=== PATIENT | female | born 1955 | race Caucasian/White ===

== ENCOUNTER 2022-04-15 05:20 | Observation (INO) ==
[2022-04-15 05:38] VITALS: TEMP 98.4
[2022-04-15 06:12] LABS: Basophils % 0.5 %; Eosinophils # 0.3 K/mcL (0.0-0.6); Eosinophils % 4.5 %; Hematocrit 45.7 % (35.3-44.9); Hemoglobin 15.2 g/dL (11.5-15.4); Immature Granulocytes % 0.4 % (0-4); Lymphocytes # 1.9 K/mcL (0.6-4.6); Lymphocytes % 25.7 %; Mean Corpuscular HGB Conc 33.3 g/dL (31.6-35.5); Mean Corpuscular Volume 81.2 fL (83.0-100.0); Mean Platelet Volume 10.9 fL (9.4-12.4); Monocytes # 0.7 K/mcL (0.0-1.3); Monocytes % 9.8 %; Neutrophils # 4.5 K/mcL (1.6-8.9); Platelet Count 164 K/mcL (140-400); Red Blood Count 5.63 M/mcL (3.82-4.97); Red Cell Distribution Width 12.4 % (11.5-14.5); Segmented Neutrophils % 59.1 %; White Blood Count 7.5 K/mcL (4.3-11.1)
[2022-04-15 06:18] LABS: Prothrombin Time 11.3 Seconds (9.4-12.1)
[2022-04-15] MEDS ORDERED: Nitroglycerin 0.4 MG TAB.SUBL SL PRN (06:20)
[2022-04-15] MEDS ORDERED: Aspirin 81 MG TAB.CHEW PO ONE (06:20)
[2022-04-15 06:21] LABS: Activated Partial Thrombo Time 36.5 Seconds (26.0-36.0)
[2022-04-15 06:34] LABS: BUN/Creatinine Ratio 18 (6-26); Blood Urea Nitrogen 14 mg/dL (8-23); Calcium 9.2 mg/dL (8.6-10.3); Carbon Dioxide 24 mEq/L (23-29); Chloride 103 mEq/L (98-107); Glucose 123 mg/dL (70-105); Osmolality,Calculated 288 (280-300); Potassium 3.8 mEq/L (3.5-5.1); Sodium 138 mEq/L (136-145); eGFR For African Americans > 60 (> 60); eGFR For Non-African Americans > 60 (> 60)
[2022-04-15 06:35] LABS: Troponin I < 0.03 ng/mL (< 0.04)
[2022-04-15] MEDS ORDERED: Ondansetron 4 MG/2 ML VIAL IVP PRN (07:17)
[2022-04-15 11:25] VITALS: BP 135/69; PULSE 65; O2SAT 100
[2022-04-15] MEDS ORDERED: Regadenoson 0.4 MG/5 ML SYRINGE IVP ONE (11:45)
== END 2022-04-15 14:51 | disposition home or self-care (01) ==
LOC: 3BNU 05:20 → EMEROOARM 05:20 → 3BNU 13:04
PROVIDERS: ADMIT Internal Medicine; ATTEND Internal Medicine